=== PATIENT | female | born 1975 | race Caucasian/White ===

== ENCOUNTER 2020-07-11 15:25 | Emergency (ER) | payer SELFPAY ==
[~2020-07-11] VITALS: Ht 157.5 cm; Wt 53.9 kg
[2020-07-11 15:28] VITALS: BP 139/101
--- NOTE | 2020-07-11 17:21 | NUR ---
Sandra laguerre in [facility] - 07/11/20 at 1722 by MARCI CYBER LEGAL ADVISOR: PT TO ROOM FROM CHARITO
--- NOTE | 2020-07-11 17:22 | NUR ---
CANDY SEPARATOR ENROBING: NO ANSWER X 1
--- NOTE | 2020-07-11 17:29 | NUR ---
PSYCH SALES SPECIALIST: CALLED PT NO ANSWER
--- NOTE | 2020-07-11 17:38 | NUR ---
EXPERIMENTAL ASSEMBLER: CALLED PT NO ANSWER
== END 2020-07-11 17:42 | disposition left against medical advice (07) ==
LOC: ED 17:35
DX: F11.90 Opioid use, unspecified, uncomplicated (principal); F14.90 Cocaine use, unspecified, uncomplicated; Z53.21 Procedure and treatment not carried out due to patient leaving prior to being seen by health care provider